=== PATIENT | female | born 1965 | race Caucasian/White ===

== ENCOUNTER 2019-04-01 10:11 | Day surgery (SDC) | payer BC ==
[2019-04-01] VITALS (12 sets, daily range): BP systolic 105–143; BP diastolic 52–85; PULSE 16–71; RESP 9–21; Ht 160 cm; Wt 80.8 kg
[~2019-04-01] VITALS: Ht 160 cm; Wt 80.8 kg
[~2019-04-01 10:11] MED LIST: ALBU8.5H8 INH; AMLO5TAB4 PO; ATOR40TA68 PO; FLOV110 INHALATION; HYDR25TA6 PO; HYG50 PO; LISI40TA3 PO; LOSA100T15 PO; MONT10TA24 PO; SIMV20TA PO
[2019-04-01] MEDS ORDERED: SOD CHLORIDE 0.9% 1,000 ML IV ONE (11:00)
[2019-04-01] MEDS ORDERED: CEFAZOLIN 2 GM/50 ML (PMX) 50 ML IVPB ONE (11:00)
[2019-04-01] MEDS ORDERED: SOD CHLORIDE 0.9% 1,000 ML IV SCH (11:30)
[2019-04-01] MEDS ORDERED: MIDAZOLAM 1 MG/ML 2 ML INJ ONE (13:43)
[2019-04-01] MEDS ORDERED: EPHEDrine 25 MG/5 ML SYG ONE (13:43)
[2019-04-01] MEDS ORDERED: PROPOFOL 20 ML ONE (13:43)
[2019-04-01] MEDS ORDERED: FENTAnyl 50 MCG/ML VIAL ONE (13:44)
[2019-04-01] MEDS ORDERED: METOCLOPRAMIDE 10 MG INJ ONE (13:45)
[2019-04-01] MEDS ORDERED: DEXAMETHASONE 4 MG/ML 5 ML INJ ONE (13:45)
[2019-04-01] MEDS ORDERED: ONDANSETRON 4 MG INJ ONE (13:45)
[2019-04-01] MEDS ORDERED: LIDOCAINE 2% (MDV) 20 ML INJ ONE (13:55)
[2019-04-01] MEDS ORDERED: BUPIVACAINE 0.5% (SDV) 30 ML INJ ONE (13:55)
[2019-04-01] MEDS ORDERED: HYDROmorphONE 1 MG/5 ML IV SYRINGE IV PRN (14:00)
[2019-04-01] MEDS ORDERED: FENTAnyl 50 MCG/ML VIAL IV PRN (14:00)
[2019-04-01] MEDS ORDERED: MEPERIDINE 25 MG INJ IV PRN (14:00)
[2019-04-01] MEDS ORDERED: ONDANSETRON 4 MG INJ IV PRN (14:00)
[2019-04-01] MEDS ORDERED: PROCHLORPERAZINE 10 MG INJ IV PRN (14:00)
[2019-04-01] MEDS ORDERED: OXYCODONE/ACETAMINOPHEN (5/325) TAB PO PRN (14:00)
[2019-04-01] MEDS ORDERED: HYDROCODONE/APAP (5/325) TAB PO ONE (15:00)
== END 2019-04-01 16:14 | disposition home or self-care (01) ==
LOC: SDS 10:11
PROVIDERS: ATTEND Surgery
DX: D17.1 Benign lipomatous neoplasm of skin and subcutaneous tissue of trunk (principal); I10 Essential (primary) hypertension; J45.909 Unspecified asthma, uncomplicated
CPT/HCPCS: 14001; 71045; 80053; 84703; 85025; 85610; 85730; 88307; 93005; J0690; J1100; J2250; J2405; J2765; J3010; Z7512; Z7610